=== PATIENT | female | born 1990 | race Caucasian/White ===

== ENCOUNTER 2017-05-21 16:58 | Emergency (ER) | payer OTHER ==
[~2017-05-21] VITALS: Ht 172.7 cm; Wt 90.7 kg
[2017-05-21 17:09] VITALS: Ht 172.7 cm; Wt 90.7 kg
[2017-05-21 17:49] VITALS: BP 126/89
== END 2017-05-21 17:45 | disposition other institution (70) ==
LOC: ED 16:58
DX: Z02.89 Encounter for other administrative examinations (principal)

== ENCOUNTER 2017-10-06 18:11 | Emergency (ER) | payer MEDICAID ==
[~2017-10-06] VITALS: Ht 162.6 cm; Wt 70.3 kg
[2017-10-06 18:13] VITALS: Ht 162.6 cm; Wt 70.3 kg
[2017-10-06 19:03] LABS: PLATELET COUNT 145 x10^3mcL (130-400)
[2017-10-06 19:14] LABS: CALCIUM 8.8 mg/dL (8.5-10.1); CARBON DIOXIDE 28.5 mmol/L (21-32); CHLORIDE SERUM 100 mmol/L (98-107); GFR1 > 60 mL/min; GLUCOSE SERUM 75 mg/dL (74-106); POTASSIUM SERUM 3.2 mmol/L (3.5-5.1); SODIUM SERUM 135 mmol/L (136-145)
[2017-10-06 19:16] LABS: BASOPHIL % 0 % (0-2); RED CELL DISTRIBUTION WIDTH 21.9 % (11.5-14.5)
[2017-10-06 19:19] LABS: ALBUMIN 3.6 g/dL (3.4-5.0); ALKALINE PHOSPHATASE 75 U/L (46-116); ALT/SGPT 34 U/L (14-59); AST/SGOT 43 U/L (15-37); BILIRUBIN TOTAL 0.86 mg/dL (0.20-1.00); TOTAL PROTEIN, SERUM 7.1 g/dL (6.4-8.2)
[2017-10-06 20:00] LABS: rbc morphology (normal/abnorm) ABNORMAL (NORMAL)
[2017-10-06 20:16] LABS: AMPHETAMINE QUAL UR NONE DETECTED (NEG <=1000)
[2017-10-06 21:13] VITALS: BP 92/52
== END 2017-10-06 21:13 | disposition home or self-care (01) ==
LOC: ED 18:11
PROVIDERS: Emergency Medicine
DX: R56.9 Unspecified convulsions (principal); F12.90 Cannabis use, unspecified, uncomplicated; Z86.79 Personal history of other diseases of the circulatory system
CPT/HCPCS: G0480; J2060

== ENCOUNTER 2019-03-02 | Emergency (ER) | payer MEDICAID ==
[~2019-03-02] VITALS: Ht 162.6 cm; Wt 73.0 kg
[2019-03-02 00:06] VITALS: Ht 162.6 cm; Wt 73.0 kg
[2019-03-02 01:51] LABS: BASOPHIL % 0.4 % (0-2)
[2019-03-02 01:53] LABS: PLATELET COUNT 405 x10^3mcL (130-400); RED CELL DISTRIBUTION WIDTH 16.9 % (11.5-14.5)
[2019-03-02 01:59] LABS: CALCIUM 8.1 mg/dL (8.5-10.1); CARBON DIOXIDE 29.9 mmol/L (21-32); CHLORIDE SERUM 108 mmol/L (98-107); CREATININE SERUM 0.7 mg/dL (0.6-1.0); GFR1 > 60 mL/min; GLUCOSE SERUM 106 mg/dL (74-106); POTASSIUM SERUM 3.2 mmol/L (3.5-5.1); SODIUM SERUM 147 mmol/L (136-145)
[2019-03-02 02:15] LABS: ALBUMIN 3.6 g/dL (3.4-5.0); ALKALINE PHOSPHATASE 71 U/L (46-116); ALT/SGPT 22 U/L (14-59); AMYLASE 85 U/L (25-115); AST/SGOT 22 U/L (15-37); BILIRUBIN TOTAL 0.14 mg/dL (0.20-1.00); LIPASE 76 IU/L (73-393); TOTAL PROTEIN, SERUM 7.6 g/dL (6.4-8.2)
[2019-03-02 05:14] VITALS: BP 109/69
== END 2019-03-02 05:14 | disposition home or self-care (01) ==
LOC: ED
PROVIDERS: Emergency Medicine
DX: R07.89 Other chest pain (principal); R10.9 Unspecified abdominal pain; R05 Cough
CPT/HCPCS: 85378; J1885

== ENCOUNTER 2019-03-15 23:51 | Emergency (ER) | payer MEDICAID ==
[~2019-03-15] VITALS: Ht 162.6 cm; Wt 73.7 kg
[2019-03-16 00:47] LABS: BASOPHIL % 0.3 % (0-2); PLATELET COUNT 293 x10^3mcL (130-400); RED CELL DISTRIBUTION WIDTH 16.9 % (11.5-14.5)
[2019-03-16 01:00] LABS: CALCIUM 7.5 mg/dL (8.5-10.1); CHLORIDE SERUM 108 mmol/L (98-107); CREATININE SERUM 0.7 mg/dL (0.6-1.0); GFR1 > 60 mL/min; GLUCOSE SERUM 90 mg/dL (74-106); POTASSIUM SERUM 3.5 mmol/L (3.5-5.1); SODIUM SERUM 143 mmol/L (136-145)
[2019-03-16 01:18] LABS: ALBUMIN 3.4 g/dL (3.4-5.0); ALKALINE PHOSPHATASE 62 U/L (46-116); ALT/SGPT 16 U/L (14-59); AST/SGOT 15 U/L (15-37); BILIRUBIN TOTAL 0.16 mg/dL (0.20-1.00); TOTAL PROTEIN, SERUM 7.2 g/dL (6.4-8.2)
[2019-03-16 02:09] VITALS: BP 111/59
== END 2019-03-16 02:09 | disposition home or self-care (01) ==
LOC: ED 23:51
PROVIDERS: Emergency Medicine
DX: M79.10 Myalgia, unspecified site (principal); R05 Cough; R07.89 Other chest pain; R20.0 Anesthesia of skin; R11.10 Vomiting, unspecified
CPT/HCPCS: 36415; Q0092

== ENCOUNTER 2019-03-16 21:34 | Emergency (ER) | payer MEDICAID ==
[~2019-03-16] VITALS: Ht 162.6 cm; Wt 73.5 kg
[2019-03-16 21:38] VITALS: Ht 162.6 cm; Wt 73.5 kg
[2019-03-17 00:26] VITALS: BP 104/53
== END 2019-03-17 00:26 | disposition home or self-care (01) ==
LOC: ED 21:34
DX: M94.0 Chondrocostal junction syndrome [Tietze] (principal); R10.811 Right upper quadrant abdominal tenderness
CPT/HCPCS: Q0092; Q0162